=== PATIENT | male | born 1940 | race Two or more races ===

== ENCOUNTER 2017-02-12 22:19 | Inpatient (IN) | payer OTHER ==
[~2017-02-12] VITALS: Ht 172.7 cm; Wt 70.3 kg
[2017-02-12] MEDS ORDERED: OLANZAPINE 10 MG VIAL IM ONE ×2 (23:00→23:20)
[2017-02-12] MEDS ORDERED: LORAZEPAM INJ 2 MG/ML VIAL ONE (23:00)
[2017-02-12] MEDS ORDERED: LORAZEPAM INJ 2 MG/ML VIAL IM ONE (23:20)
[2017-02-12] MEDS ORDERED: MAGNESIUM HYDROXIDE 30 ML UDC PO PRN (23:30)
[2017-02-12] MEDS ORDERED: ZOLPIDEM TARTRATE 5 MG TABLET PO PRN (23:30)
[2017-02-12] MEDS ORDERED: MAG HYDROX/AL HYDROX/SIMETH 30 ML UDC PO PRN (23:30)
[2017-02-12] MEDS ORDERED: ACETAMINOPHEN 325 MG TABLET PO PRN (23:30)
[2017-02-12] MEDS ORDERED: LORAZEPAM 1 MG TABLET PO PRN (23:30)
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
[2017-02-13 02:12] VITALS: BP 106/65
[2017-02-13 08:00] VITALS: BP 140/69
--- NOTE | 2017-02-13 11:21 | NUR ---
UR Review: RASHI spoke with Isabel, case resource manager at [facility] [phone]. Isabel requested clinicals to be faxed. RASHI informed Isabel that History + Physical and progress notes are unavailable as patient had not been seen by his doctors yet. Isabel requested nursing notes and a face sheet. RASHI faxed over the requested documents to fax number [phone]. RASHI will fax over the clinicals once more information is available.
[2017-02-13] MEDS ORDERED: SIMV20TA6 PO (11:28)
[2017-02-13] MEDS ORDERED: METO-302 PO (11:28)
[2017-02-13] MEDS ORDERED: ESCI5TAB PO (11:28)
[2017-02-13] MEDS ORDERED: OMEP20CA10 PO (11:28)
[2017-02-13] MEDS ORDERED: ASPI81TA2 PO (11:28)
[2017-02-13] MEDS: LORAZEPAM 0.5 MG TABLET PO PRN ×2 (11:50→20:28)
--- NOTE | 2017-02-13 11:50 | NUR ---
RN NOTES ADMINISTERED ATIVAN 0.5 MG PO PRN FOR PARANOIA, IRRITABLE, HARD TO FOLLOW DIRECTION, BANGING IN TH TABLE, DELUSIONAL. V/S TAKEN BP-140/69, P-78, 1:1 SITTER NEXT TO THE PATIENT, SAFETY PRECAUTION MAINTAINED ALL THE TIME.
--- NOTE | 2017-02-13 15:08 | NUR ---
UR Update: RASHI faxed over medication list, psychiatric history and physical, hold paperwork to Isabel bilingual patient support caseworker at [facility] [phone] / fax number [phone]. Medical information [progress / history + physical] unavailable at this time.
[2017-02-13 20:22] VITALS: BP 103/70
--- NOTE | 2017-02-13 20:29 | NUR ---
RN NOTES ADMINISTERED ATIVAN 0.5 MG PO PRN FOR PARANOIA, IRRITABLE, HARD TO FOLLOW DIRECTION, BANGING IN TH TABLE, DELUSIONAL. V/S WNL, SAFETY PRECAUTION MAINTAINED .
[2017-02-13] MEDS: FAMOTIDINE (20 MG) 20 MG TABLET PO SCH (21:00)
[2017-02-13] MEDS: QUETIAPINE FUMARATE 25 MG TABLET PO SCH (21:27)
[2017-02-13] MEDS: SIMVASTATIN 20 MG TABLET PO SCH (21:27)
--- NOTE | 2017-02-13 21:28 | NUR ---
GPS RN NOTES PT. REFUSED ALL SCHEDULE MEDS FOR THIS SHIFT ENCOURGED FOR MEDS STILL REFUESD ,, PT. STATED I DON'T WANTED ANY MEDS
[2017-02-14] MEDS ORDERED: METOPROLOL SUCCINATE 25 MG TAB.SR.24H PO SCH (07:00)
[2017-02-14 07:25] LABS: BASOPHILS % (AUTO) 0.2 % (0.0-2.0); EOSINOPHILS % (AUTO) 0.5 % (0.0-6.0); HEMATOCRIT 41 % (39-51); HEMOGLOBIN 13.7 g/dL (13.5-17.5); LYMPHOCYTES # (AUTO) 1.8 /CMM (0.8-4.8); LYMPHOCYTES % (AUTO) 18.7 % (20.0-44.0); MEAN CORPUSCULAR HEMOGLOBIN 31 PG (26.0-33.0); MEAN CORPUSCULAR HGB CONC 33 g/dl (31.0-36.0); MEAN CORPUSCULAR VOLUME 93 fL (80-96); MONOCYTES # (AUTO) 0.8 /CMM (0.1-1.30); MONOCYTES % (AUTO) 8.1 % (2.0-12.0); NEUTROPHILS % (AUTO) 72.5 % (43.0-81.0); PLATELET COUNT (AUTO) 170 /CMM (150-450); RDW COEFFICIENT OF VARIATION 13.8 (11.5-15.0); RED BLOOD CELL COUNT(AUTO) 4.39 MIL/uL (4.5-6.0); WHITE BLOOD COUNT (AUTO) 9.6 K/uL (4.3-11.0)
[2017-02-14 07:35] LABS: ALANINE AMINOTRANSFERASE 33 U/L (12-78); ALBUMIN 4.2 g/dL (3.4-5.0); ALKALINE PHOSPHATASE 69 U/L (46-116); ASPARTATE AMINOTRANSFERASE 38 U/L (15-37); BILIRUBIN,TOTAL 1.6 mg/dL (0.2-1.0); CALCIUM, SERUM 9.3 mg/dL (8.5-10.1); CARBON DIOXIDE 28 mmol/L (21-32); CHLORIDE 106 mmol/L (98-107); CREATININE 1.1 mg/dL (0.6-1.3); GLUCOSE 115 mg/dL (74-106); POTASSIUM 4.1 mmol/L (3.5-5.1); SODIUM SERUM 144 mmol/L (136-145); UREA NITROGEN, BLOOD 24 mg/dL (7-18)
[2017-02-14 07:37] LABS: CHOLESTEROL 122 mg/dL (<200); HDL CHOLESTEROL 77 mg/dL (40-60); LDL 45 mg/dL (0-99); TRIGLYCERIDES 41 mg/dL (30-150)
[2017-02-14 08:24] VITALS: BP 130/67
[2017-02-14] MEDS: FAMOTIDINE (20 MG) 20 MG TABLET PO SCH ×2 (08:29→21:16)
[2017-02-14] MEDS: ASPIRIN 81 MG TAB.CHEW PO SCH (08:29)
[2017-02-14] MEDS: LORAZEPAM 0.5 MG TABLET PO PRN (08:29)
[2017-02-14] MEDS: METOPROLOL SUCCINATE 25 MG TAB.SR.24H PO SCH (11:29)
--- NOTE | 2017-02-14 12:22 | NUR ---
UR Update: RASHI faxed medical history and physical to Isabel correctional case manager at [facility] [phone] / fax number [phone]. No progress notes are available at this time.
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
--- NOTE | 2017-02-14 13:27 | NUR ---
RECEIVED PT. WITH 1:1 SITTER. PT. IS CALM AND COOPERATIVE AND FOLLOWS DIRECTIONS. DR. DOTY ORDERED TO D/C 1:1.
[2017-02-14 16:00] VITALS: BP 133/61
[2017-02-14] MEDS: MEMANTINE HCL 5 MG TABLET PO SCH (17:00)
[2017-02-14 20:00] VITALS: BP 138/77
[2017-02-14] MEDS: SIMVASTATIN 20 MG TABLET PO SCH (21:47)
[2017-02-14] MEDS: QUETIAPINE FUMARATE 25 MG TABLET PO SCH (21:47)
[2017-02-14] MEDS ORDERED: DONEPEZIL 5 MG TABLET PO SCH (22:00)
--- NOTE | 2017-02-15 07:24 | NUR ---
GPS N NOTES PT. RESTING HIS BED , DURING SHIFT OFFERED SLEEPING PILLS , PT. REFUSED TO TAKE IT , ENDORSE TO NEXT SHIFT FOR CONTINUITY OF CARE .
[2017-02-15 08:20] VITALS: BP 143/76
[2017-02-15] MEDS: MEMANTINE HCL 5 MG TABLET PO SCH (08:58)
[2017-02-15] MEDS: ASPIRIN 81 MG TAB.CHEW PO SCH (08:58)
[2017-02-15] MEDS: FAMOTIDINE (20 MG) 20 MG TABLET PO SCH (08:58)
--- NOTE | 2017-02-15 09:00 | NUR ---
GPS/RN -NOTES PATIENT REFUSED /UNCOOPERATIVE WITH THE STAFF WHO IS TAKING HIM TO THE RADIOLOGY UNIT FOR THE CT SCAN ORDER .EXPLAINED TO THE PATIENT THE IMPORTANCE OF THE ORDER IN SAUDI ARABIAN LANGUAGE UT PATIENT IS RESISTIVE.
--- NOTE | 2017-02-15 10:26 | NUR ---
Discharge Planning: SW called and spoke with patient's at [address] [place] [address] / [phone]. She stated that she came to visit patient last evening and was uncomfortable being around him. stated that she had called the insurance company and they informed her that a SNF stay might be arranged. SW stated that she will follow up with the insurance company. Patient was also agitated in the morning. Dr. Chiang was made aware of this.
--- NOTE | 2017-02-15 10:28 | NUR ---
UR Update: RASHI called and spoke with Isabel, caseworker intake at [facility] [phone] / fax number [phone], informing her of patient's current mental state. Isabel stated that she will fax over a list of contracted SNF facilities. RASHI provided fax number [phone] and asked Isabel to title fax "ATTN: ESEQUIEL." Isabel stated that a peer to peer review might be conducted. RASHI stated that she will inform the psychiatrist, Dr. Chiang and will follow up with Isabel at a later time.
--- NOTE | 2017-02-15 10:39 | NUR ---
DR. COLBERT CAME AND SEE THE PT. AND MADE AWARE ABOUT THE LAB RESULT AND RECOMMENDED TO TRANSFER TO MED- SURG AND SHE CONTACTED THE SLUDGE CONTROL ATTENDANT AMENA MEEKS. AMENA MEEKS ORDERED TO TRANSFER PT. TO MED-SURG. DR. VARELA MADE AWARE AND ORDERED TO D/C PT. TO MED-SURG AND CONTINUE ON HOLD AND CONTINUE SAME MEDS INCLUDING PRN. Addendum: 02/15/17 at 1049 by KWASI LANGSTON RN WRONG PATIENT
[2017-02-15 11:11] VITALS: BP 143/76
[2017-02-15] MEDS: METOPROLOL SUCCINATE 25 MG TAB.SR.24H PO SCH (11:11)
--- NOTE | 2017-02-15 11:33 | NUR ---
DR. DOTY GAVE AN ORDER TO D/C HOLD AND D/C PT. TODAY AND TO FOLLOW UP WITH PSYCH AND MEDICAL DOCTORS.
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
--- NOTE | 2017-02-15 13:51 | NUR ---
UR Update: RASHI faxed a discharge summary to Isabel caser shoe parts at [facility] [phone] / fax number [phone].
--- NOTE | 2017-02-15 14:30 | NUR ---
GPS/RN-NOTES PATIENT WAS DISCHARGE TO HOME TODAY. DR. DOTY AND SHANTELL MEEKS AGREES OF PATIENT DISCHARGE WITH ORDERS. PATIENT DID NOT VERBALIZE SI/HI,DENIES VISUAL/AUDITORY HALLUCINATION AT THE TIME OF DISCHARGE. PATIENT AWAKE,ALERT AMBULATORY CALM AND COOPERATIVE AT THE TIME OF DISCHARGE.PATIENT STRONGLY REFUSED BODY ASSESSMENT PRIOR TO DISCHARGE. EXPLAIN TO THE PATIENT THE HOSPITAL POLICIES BUT PATIENT STILL REFUSED. HE WAS CLINICAL DATA SPECIALIST BY HER JAELYN ORDONEZ VIA PRIVATE CAR. ALL DISCHARGE MEDICATIONS WAS REVIEWED WITH THE PATIENT WITH INSTRUCTIONS. RX WAS GIVEN TO THE . PATIENT LEFT THE UNIT IN STABLE CONDITION WITH ALL HIS BELONGINGS. ASSISTED PATIENT BY ONE DRESSER TENDER STAFF IN THE LOBBY FOR SAFETY. Addendum: 02/15/17 at 1837 by DEEDEE WASHINGTON RN IN ADDITION TO MY EARLIER NOTES. PATIENT JAELYN ORDONEZ REFUSED TO SIGN CONTINUING CARE ADVISEMENT AND ACKNOWLEDGEMENT. EXPLAINED HOSPITAL POLICIES BUT SHE STILL REFUSED TO SIGN.CHARGE NURSE AWARE.
== END 2017-02-15 14:30 | disposition home or self-care (01) | DRG 885 ==
LOC: GPS 22:19
PROVIDERS: ADMIT Psychiatry & Neurology Psychiatry; ATTEND Psychiatry & Neurology Psychiatry
DX: F29 Unspecified psychosis not due to a substance or known physiological condition (principal); G93.40 Encephalopathy, unspecified; F03.91 Unspecified dementia, unspecified severity, with behavioral disturbance; M06.9 Rheumatoid arthritis, unspecified; F03.90 Unspecified dementia, unspecified severity, without behavioral disturbance, psychotic disturbance, mood disturbance, and anxiety; I10 Essential (primary) hypertension; Z79.899 Other long term (current) drug therapy; Z79.82 Long term (current) use of aspirin
CPT/HCPCS: 36415; 70450-TC; 80053-TC; 80061-TC; 84443-TC; 85025-TC; 87081-TC; J2060; J3490